=== PATIENT | male | born 1940 | race Caucasian/White ===

== ENCOUNTER → 2018-04-02 | Outpatient (CLI) | payer MEDICARE ==
--- NOTE | 2018-04-02 20:56 | Diagnostic Imaging Report ---
History:Syncope, falls Comparison studies:None Technique: Axial images were obtained from the skull base to the vertex. Coronal and sagittal images reconstructed from the axial data. Intravenous contrast: None Findings: Scalp/skull: No abnormalities. Extra-axial spaces: No masses. No fluid collections. Brain sulci: Mildly prominent. Ventricles: Mild compensatory dilatation. No hydrocephalus. Parenchyma: Scattered small hypodensities in the supratentorial white matter are small vessel ischemic changes. No masses, hemorrhage, acute or chronic cortical vascular insults. Sellar/suprasellar region: No abnormalities. Craniocervical junction: Patent foramen magnum. No Chiari one malformation. Incidental findings: Atherosclerotic calcifications in the carotid siphons . Impression: No acute abnormalities. Chronic findings: 1. Mild generalized volume loss. 2. Mild supratentorial white matter small vessel ischemic changes. Signed by: DR Janes Cassidy M.D. on 04/02/2018 8:53 PM
== END ==
LOC: CT 15:23
PROVIDERS: ATTEND Family Medicine
DX: R55 Syncope and collapse (principal)
CPT/HCPCS: 70450

== ENCOUNTER → 2018-04-06 | Outpatient (CLI) | payer MEDICARE | LOC: CARD 09:20 | PROVIDERS: ATTEND Family Medicine | DX: R55 Syncope and collapse (principal) | CPT/HCPCS: 93880 ==

== ENCOUNTER → 2019-12-29 | Day surgery (SDC) | payer MEDICARE ==
[2019-12-27 11:09] LABS: BASOPHILS # (AUTO) 0.1 (0.0-0.1); BASOPHILS % 0.9 % (0.0-1.0); EOSINOPHILS # (AUTO) 0.3 (0.0-0.4); EOSINOPHILS % 4.3 % (0.0-6.0); HEMOGLOBIN 11.7 g/dL (14.0-18.0); LYMPHOCYTES # (AUTO) 1.5 (1.0-3.2); LYMPHOCYTES % 23.1 % (18.0-39.1); MEAN CORPUSCULAR HEMOGLOBIN 33.6 pg (28-32); MEAN CORPUSCULAR HGB CONC 33.4 g/dL (31-35); MEAN CORPUSCULAR VOLUME 100.6 fL (81-99); MONOCYTES # (AUTO) 0.9 (0.2-0.8); MONOCYTES % 13.9 % (4.4-11.3); NEUTROPHILS # (AUTO) 3.8 (2.1-6.9); NEUTROPHILS % 57.5 % (38.7-80.0); PLATELET COUNT 340 x10e3/uL (140-360); RED BLOOD COUNT 3.48 x10e6/uL (4.3-5.7); RED CELL DISTRIBUTION WIDTH 12.8 % (11.7-14.4)
[~2019-12-29] MED LIST: ALLOPURINOL300 MG PO; ASPIRIN81 MG; ATENOLOL50 MG; FLOMAX0.4 MG PO; GEMFIBROZIL600 MG; LOSARTAN POTASS25 MG; MULTI-VITAMIN1 EACH; NEXIUM40 MG; POTASSIUM CHLO10 ME1 PO; PRAVASTATIN SOD40 MG; PROPOFOL IV EMULSION 10 MG/ML 50 ML VIAL ONE; VITAMIN D34000 UNIT; ZYRTEC10 M3
--- OUTSIDE RECORDS SUMMARY | 2019-12-29 07:10 | XMS REPORT ---
[facility] [place] Address Unknown Phone Unavailable Care Team Providers Care Director External Communications Name Role Phone ALVARO HESS Unavailable Unavailable Problems This patient has no known problems. Allergies, Adverse Reactions, Alerts This patient has no known allergies or adverse reactions. Medications This patient has no known medications. Encounters Start Date/Time End Date/Time Encounter Type Admission Type Attending [facility] Facility Care Department Encounter ID 2019-02-18 05:30:00 Inpatient [facility] [id number] 2019-02-21 17:55:00 2019-02-21 17:55:00 Emergency E [facility] 7502 Results Test Description Test Time Test Comments Text Results Atomic Results Result Comments CT BRAIN WO [place] [address] Patient Name: NANDINI DEE MR #: [id number] : 1940 Age/Sex: 77/M Req #: [id number] Adm Physician: Ordered by: JIMENA WELDON, ALVARO Gutiérrez MD Report #: [id number] Location: CT Room/Bed: Procedure: [id number] CT/CT BRAIN WO Exam Date: 04/02/18 Exam Time: 1550 REPORT STATUS: Signed History:Syncope, falls Comparison studies:None Technique: Axial images were obtained from the skull base to the vertex. Coronal and sagittal images reconstructed from the axial data. Intravenous contrast: None Findings: Scalp/skull: No abnormalities. Extra-axial spaces: No masses. No fluid collections. Brain sulci: Mildly prominent. Ventricles: Mild compensatory dilatation. No hydrocephalus. Parenchyma: Scattered small hypodensities in the supratentorial white matter are small vessel ischemic changes. No masses, hemorrhage, acute or chronic cortical vascular insults. Sellar/suprasellar region: No abnormalities. Craniocervical junction: Patent foramen magnum. No Chiari one malformation. Incidental findings: Atherosclerotic calcifications in the carotid siphons . Im pression: No acute abnormalities. Chronic findings: 1. Mild generalized volume loss. 2. Mild supratentorial white matter small vessel ischemic changes. Signed by: DR Janes Cassidy M.D. on 04/02/2018 8:53 PM Dictated By: JANES WILKINS MD 52 Transcribed By: KALIN on 04/02/182052 COPY TO: ALVARO HESS
--- OUTSIDE RECORDS SUMMARY | 2019-12-29 07:10 | XMS REPORT | Summary of Care ---
Author Author Jeny Lackey Organization Unknown Address Unknown Phone Unavailable Care Team Providers Care Sand Polisher Name Role Phone TRINH MORALES M.D. 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 Quantity: 2 TRINH MORALES M.D. * Start : 24-Nov-2018 Active diazePAM 10 MG Oral Tablet TAKE 1 TABLET 1 HOUR PRIOR TO PROCEDURE, MAY REPEAT IF NEEDED. * Quantity: 2 Refills: 0 TRINH MORALES M.D. * Start : 07-Dec-2018 Active Allergies and Adverse Reactions Name Dates Details Penicillins (Allergy) Status: Active Procedures Procedure Dates Details Post Op Promis 29 Survey Date: 11-Mar-2019 Immunization Name Dates Details Immunizations not documented Social History Name Dates Details Unknown if ever smoked Vital Signs Date Test Result Details No Known Vitals to report Results Date Description Value Details [id number] [U] XRAY SHOULDER MIN 2 VWS LEFT [id number] XR SHOULDER MIN 2 VWS LEFT EXAM: XR SHOULDER MIN 2 VWS LEFT DATE: 02/25/2019 12:13 PM CDT INDICATION: primary osteoarthritis of left shoulder COMPARISON: None available TECHNIQUE: 4 views of the left shoulder DISCUSSION: Reverse total shoulder arthroplasty with alignment without complications. No soft tissue abnormality is identified. IMPRESSION:1. Reverse total shoulder arthroplasty in good alignment. 02/25/2019 1:13 PM CDT Julian Gauthier Plan of Care Name Dates Details Planned Observations Planned Goals not documented Planned Encounters Appointment; TRINH MORALES M.D. On: 01-Apr-2019 10:45 Interventions Provided Labs/Procedures/Imaging* Post Op Promis 29 Survey; To Be Done: 11 Mar 2019 Instructions Name Dates Details Instructions not documented Encounters Appointment; MAXIMUS HOLLAND M.D. Encounter Diagnosis: Problem not documented On: 16-Nov-2018 13:15 Appointment; TRINH MORALES M.D. Encounter Diagnosis: Problem not documented On: 22-Nov-2018 14:00 Appointment; TRINH MORALES M.D. Encounter Diagnosis: Problem not documented On: 18-Feb-2019 10:00 Appointment; CODY FREITAS P.A. Encounter Diagnosis: Problem not documented On: 25-Feb-2019 10:30
[2019-12-29 09:55] VITALS: BP 129/73
== END | disposition home or self-care (01) ==
LOC: OR 07:00
PROVIDERS: ATTEND Internal Medicine Gastroenterology
DX: Z09 Encounter for follow-up examination after completed treatment for conditions other than malignant neoplasm (principal); Z86.010 Personal history of colon polyps; I10 Essential (primary) hypertension; Z71.3 Dietary counseling and surveillance; E66.3 Overweight; K57.30 Diverticulosis of large intestine without perforation or abscess without bleeding; K64.8 Other hemorrhoids; E78.5 Hyperlipidemia, unspecified; K21.9 Gastro-esophageal reflux disease without esophagitis; Z88.0 Allergy status to penicillin; Z01.810 Encounter for preprocedural cardiovascular examination; Z01.812 Encounter for preprocedural laboratory examination; Z79.82 Long term (current) use of aspirin; Z68.25 Body mass index [BMI] 25.0-25.9, adult; Z85.820 Personal history of malignant melanoma of skin
CPT/HCPCS: 36415; 45378; 85025; 93005; J2704

== ENCOUNTER → 2021-01-11 | Outpatient (CLI) | payer MEDICARE ==
[~2021-01-11] MED LIST changes: +IOPAMIDOL 370 MG/ML 200 ML INFUS..BTL INJ ONE; -PROPOFOL IV EMULSION 10 MG/ML 50 ML VIAL ONE; +SODIUM CHLORIDE 0.9% 50ML 50 ML ONE
[2021-01-11 15:14] LABS: BLOOD UREA NITROGEN 12 mg/dL (7-26); BUN/CREATININE RATIO 11 (6-25); CREATININE, SERUM 1.11 mg/dL (0.72-1.25); EST GLOMERULAR FILTRATION RATE > 60 ML/MIN (60-)
== END ==
LOC: CT 13:24
PROVIDERS: ATTEND Family Medicine
DX: K57.30 Diverticulosis of large intestine without perforation or abscess without bleeding (principal)
CPT/HCPCS: 36415; 74177; 82565; 84520; Q9967